=== PATIENT | female | born 1950 | race Caucasian/White ===

== ENCOUNTER 2023-08-10 12:10 | Emergency (ER) | payer MEDICARE, OTHER, SELFPAY ==
[2023-08-10 12:23] VITALS: BP 145/81
--- NOTE | 2023-08-10 15:16 | ED.GENMED ---
History of Present Illness
General
Chief Complaint: Abdominal Symptoms
Source: patient
Exam Limitations: none
Time Seen by Provider: 08/10/23 14:34
Nursing documentation reviewed up to this point in time: agreed with
Travel History
Have you had any contact with someone who has COVID-19?: No
Do you have any symptoms of coronavirus? Fever > 100 degrees, chills, cough, shortness of breath, sore throat, loss of taste or smell, muscle aches, or headache?: No
History of Present Illness
History of Present Illness:
72-year-old female presents to the ER for constipation. Patient has been constipated for the past 8 days. Patient has a history of Parkinson's and has caregiver with her at bedside. She has tried to increase water intake and MiraLAX added Colace
without relief. She reports she was not passing gas but is passing gas presently. She denies any nausea vomiting.
Past History
Past History
ED Past Medical History: Asthma, CAD, Cancer, HTN, Hypercholesterolemia, IA and Other (Fx Femur,' something LIke Parkinsons' has tremors and balance problems. Foot drop)
ED Past Surgical History: Cardiac (Cardiac cath 2008), Cholecystectomy, Gynecological (breast lumpectomy right) and Orthopedic (left knee fracture and repair, right hip replacement, Brent left femur)
Social History
Tobacco: Former smoker
Alcohol: Daily (Wine 2 glasses)
Drug: None
Personal:
Living: with family
Employment: Employed
Family History
Family History: Other (n/c)
Review of Systems
Review of Systems
Allergies reviewed?: Yes
All Other Systems: ROS reviewed and negative except as documented in HPI and ROS
Constitutional: Reports no symptoms; Denies fever, fatigue or chills
ABD/GI: Reports abdominal pain and constipated; Denies nausea or diarrhea
: Reports no symptoms
Musculoskeletal: Reports no symptoms
Skin: Reports no symptoms
Neurological: Reports no symptoms
Psychiatric: Reports no symptoms
Phy Exam
General Physical Exam
General Presentation: no apparent distress
General age: appears stated age
General Skin: warm and dry
General Habitus: elderly
General Mental: alert
Gastrointestinal Exam
Gastrointestinal Exam: non tender, soft and other (+ brown stool on exam )
Neurological Exam
Neurological Exam: alert and oriented x3
Musculoskeletal Exam
Musculoskeletal Exam: full ROM
Skin Exam
Skin Exam: normal color and warm/dry
Psychiatric Exam
Psychiatric Exam: normal mood/affect
Course
Orders/Labs/Results
Orders:
Orders
08/10/23 12:27
Obstruct Series W/PA Chest [CR Obstruct Series W/pa Chest] Urgent
Comment:
Reason For Exam: constipation
08/10/23 15:22
Enema- Treatment ONCE
Type: Milk of Molasses
Amount: x1
Vital Signs
Initial and Last Documented VS:
Initial Vital Signs
Temp Pulse Resp BP Pulse Ox
98.3 F 70 20 145/81 98
08/10/23 12:23 08/10/23 12:23 08/10/23 12:23 08/10/23 12:23 08/10/23 12:23
Last Documented Vital Signs
Temp Pulse Resp BP Pulse Ox
98.3 F 63 18 123/78 98
08/10/23 12:23 08/10/23 16:02 08/10/23 16:02 08/10/23 16:02 08/10/23 16:02
MDM/Problems Addressed
Differential Diagnosis Includes:
Not limited to constipation, bowel obstruction
MDM/Problems Addressed:
Patient present with complaints of constipation significant stool on x-ray however no obstruction. Patient requested enema here and was given milk of molasses enema with significant relief. Patient did have a large bowel movement as per nurse.
Patient has had intermittent which she describes as rectal spasms however feels well enough to go home.
Discussed to take MiraLAX daily and follow closely with PCP. She is to return if any worsening of symptoms.
*Critical Care Note
Total Time (30-74mins, 75-104mins- exclusive of procedures): Not Applicable
ED Attending Note
-
Portions of this chart may have been created with voice recognition software.� Occasional wrong word or��sound alike� substitutions may have occurred due to the inherent limitations of voice recognition software.
Discharge Plan
Departure
Patient Disposition: Home (Routine Discharge)
Date of Disposition: 08/10/23
Time of Disposition: 17:38
Patient with high blood pressure during this ER visit?: Yes
Covid-19: Not Applicable
Discharge Problem:
Acute constipation
Instructions: Constipation, Adult (DC)
Prescriptions:
No Action
losartan 50 MG tablet
50 mg PO BID
amlodipine 2.5 MG tablet
10 mg PO 1400
multivitamin with folic acid [Tab-A-Kenia] 1 TABLET tablet
1 tab PO DAILY
fluticasone propionate [Flovent HFA] 1 PUFF HFA aerosol inhaler
1 puff inhalation R HS
acetaminophen 325 MG tablet
650 mg PO Q4HPRN PRN (Reason: mild pain) Qty: 0 0RF
grape seed extract 100 MG capsule
100 mg PO DAILY
coenzyme Q10 [Co Q-10] 100 MG capsule
100 mg PO DAILY
docosahexaenoic acid-epa 1 CAP capsule
1 cap PO DAILY
Calcium And Magnesium Fizz Tab
1 tab PO DAILY
polyethylene glycol 3350 17 GRAMS powder in packet
17 grams PO 1400
Referrals:
Alex Crooks DO [Family Provider] -
Activity Restrictions/Additional Instructions:
Take MiraLAX daily as discussed. Increase water intake. Increase fresh fruits vegetables foods high in fiber.
Follow-up with your family doctor in the next several days
return if any worsening of symptoms
Interventions
Interventions:
*Risk Screen - Suicide Last Done: 08/10/23 15:57
*General Assessment Last Done: 08/10/23 15:57
*ED COVID-19 Vaccine History Last Done: 08/10/23 15:57
NU-Wocngw-Oyhvgdumva Assessment Last Done: 08/10/23 15:58
[2023-08-10 16:02] VITALS: BP 123/78
[2023-08-10] MEDS: TYLENOL 650 MG PO (17:58)
[2023-08-10 18:00] VITALS: BP 142/78
== END 2023-08-10 18:27 | disposition home or self-care (01) ==
LOC: EMR 12:10
PROVIDERS: EMERGENCY PHYSICIAN Emergency Medicine; FAMILY PHYSICIAN Family Medicine
DX: K59.09 Other constipation (principal); R10.9 Unspecified abdominal pain; G20.A1 Parkinson's disease without dyskinesia, without mention of fluctuations; I10 Essential (primary) hypertension; E78.00 Pure hypercholesterolemia, unspecified; I25.10 Atherosclerotic heart disease of native coronary artery without angina pectoris; J45.909 Unspecified asthma, uncomplicated; M21.379 Foot drop, unspecified foot; I25.2 Old myocardial infarction; Z87.891 Personal history of nicotine dependence; Z90.49 Acquired absence of other specified parts of digestive tract; Z96.641 Presence of right artificial hip joint; Z91.011 Allergy to milk products; Z91.018 Allergy to other foods
CPT/HCPCS: 99283; 74022